=== PATIENT | female | born 1990 | race Two or more races ===

== ENCOUNTER 2018-02-14 02:09 | Emergency (ER) | payer SELFPAY ==
[2018-02-14 02:23] VITALS: BP 121/58; BMI 42.0
--- NOTE | 2018-02-15 08:35 | DR.GENAD ---
HPI - PCP Primary Care Physician: NONE - Complaint/Symptoms Chief Complaint:: ALLERGIC REACTION TO SOMETHING SHE ATE. ATE STRAWBERRY ICE CREAM THIS MORNING AND STARTED ITCHING AND BURNING SENSATION IN [place] AND SPREAD TO ENTIRE BODY. - Mode of Arrival Mode of Arrival: Ambulatory - Timing Onset of Chief Complaint: 02/14/18 PMH - PMH Past Medical History: No Past Surgical History: Yes Surgical History: Appendectomy Past Surgical History Comment: - Family History History of Family Medical Conditions: Yes Family Medical History: Diabetes Mellitus - Social History Alcohol Use: None Do you use any recreational Drugs:: No Lives With: Family Lives Where: Home - infectious screening In the last 2 months have you had wt loss of >10#?: NO Have you had fever, night sweats or hemotysis?: No Have you traveled outside the country in the last 6 months?: No Isolation: Standard PE - Vital Signs Vitals: Temperature 98.6 F Pulse Rate 103 Respiratory Rate 14 Blood Pressure 121/58 O2 Sat by Pulse Oximetry 95 - Discharge Plan Disposition: [facility] After Triage Condition: Stable - Follow ups/Referrals Follow ups/Referrals: NFD,None [Primary Care Provider] - 3 days - Instructions
== END 2018-02-14 02:45 | disposition left against medical advice (07) ==
LOC: ER 02:09
DX: T78.40XA Allergy, unspecified, initial encounter (principal)
CPT/HCPCS: 99281